=== PATIENT | male | born 1965 | race Caucasian/White ===

== ENCOUNTER 2016-07-30 17:58 | Emergency (ER) | payer BC ==
[~2016-07-30] VITALS: Ht 177.8 cm; Wt 110.0 kg
[~2016-07-30 17:58] MED LIST: ALLOPURINOL100 MG PO; AMLODIPINE5 MG PO; ASPIRIN325 MG PO; CARAFATE OR; CITALOPRAM20 MG PO; CITALOPRAM40 MG PO; EPLERENONE50 MG PO; GLIPIZIDE ER5 MG PO; GLIPIZIDE10 MG PO; LISINOPRIL2.5 MG PO; LORTAB 1010 MG PO; LORTAB 7.57.5 MG PO; METFORMIN500 MG PO; OMEPRAZOLE20 MG PO; PIOGLITAZONE HC15 MG PO; PIOGLITAZONE HC30 MG PO; PREVACID30 M1 PO; SILVADENE1 % EX; SIMVASTATIN40 MG PO; TAM75CAP PO; VIAGRA50 MG PO; ZESTRIL40 MG PO
[2016-07-30 18:43] LABS: HEMOGLOBIN 14.5 g/dl (14.0-18.0); IMMATURE GRANULOCYTES 0.2 % (0.0-1.0); MEAN CELL VOLUME 87.5 fL CALC (80.0-100.0); MEAN CORPUSCULAR HGB 30.2 pG CALC (26.0-32.0); MEAN CORPUSCULAR HGB CONC 34.5 g/L CALC (32.0-36.0); NEUT# 5.15 thou/uL (1.82-7.42); RED BLOOD COUNT 4.8 mill/uL (4.70-6.10); RED CELL DISTRI WIDTH 12.4 % (11.5-15.5)
[2016-07-30] MEDS ORDERED: ASPIRIN81 MG PO (18:54)
[2016-07-30 19:26] LABS: ALKALINE PHOSPHATASE 69 u/l (38-126); ANION GAP 17 (6-22 (CALC)); BILIRUBIN, TOTAL 0.4 mg/dL (0.0-1.4); BUN 21 mg/dL (9-20); BUN/CREATININE RATIO 13 (12-20 (CALC)); CALCIUM 8.8 mg/dL (8.4-10.2); CARBON DIOXIDE 22 mmol/l (22-30); CHLORIDE 110 mmol/l (95-108); CREATININE 1.7 mg/dL (0.7-1.3); GFR 43 ML/MIN (>=60 (CALC)); GFR FOR AFR.AMER. 51 ML/MIN (>=60 (CALC)); GLUCOSE 157 mg/dL (75-110); POTASSIUM 4.2 mmol/l (3.5-5.1); SGOT/AST 22 u/l (17-59); SGPT/ALT 34 u/l (21-72); SODIUM 144 mmol/l (137-146); TOTAL PROTEIN 6.8 g/dL (6.3-8.2)
[2016-07-30 19:37] LABS: MYOGLOBIN 77 ng/mL (0 - 121)
[2016-07-30 20:19] VITALS: BP 112/72
== END 2016-07-30 20:20 | disposition home or self-care (01) | DRG 313 ==
LOC: ED 17:58
DX: R07.89 Other chest pain (principal); I10 Essential (primary) hypertension; F41.9 Anxiety disorder, unspecified; E11.9 Type 2 diabetes mellitus without complications

== ENCOUNTER 2016-11-10 16:29 | Emergency (ER) | payer BC ==
[~2016-11-10] VITALS: Ht 177.8 cm; Wt 120.0 kg
[~2016-11-10 16:29] MED LIST changes: +ASPIRIN81 MG PO
[2016-11-10 17:22] LABS: URINE BILIRUBIN - DIPSTICK NEGATIVE (NEGATIVE); URINE BLOOD DIPSTICK NEGATIVE (NEGATIVE); URINE CLARITY CLEAR; URINE COLOR YELLOW; URINE GLUCOSE - DIPSTICK NEGATIVE (NEGATIVE); URINE KETONE NEGATIVE (NEGATIVE); URINE LEUK ESTERASE NEGATIVE (NEGATIVE); URINE NITRITE - DIPSTICK NEGATIVE (Negative); URINE PH 5.5 (4.5-8.0); URINE PROTEIN - DIPSTICK NEGATIVE (NEG-TRACE); URINE SPECIFIC GRAVITY >=1.030; URINE UROBILINOGEN - DIPSTICK 0.2 E.U./dL (0.2)
[2016-11-10 17:39] LABS: HEMOGLOBIN 14.9 g/dl (14.0-18.0); IMMATURE GRANULOCYTES 0.2 % (0.0-1.0); MEAN CELL VOLUME 87.8 fL CALC (80.0-100.0); MEAN CORPUSCULAR HGB 30.4 pG CALC (26.0-32.0); MEAN CORPUSCULAR HGB CONC 34.7 g/L CALC (32.0-36.0); NEUT# 5.24 thou/uL (1.82-7.42); RED BLOOD COUNT 4.9 mill/uL (4.70-6.10); RED CELL DISTRI WIDTH 12.4 % (11.5-15.5)
[2016-11-10 17:44] LABS: ALBUMIN 4.4 g/dL (3.2-5.0); BILIRUBIN, TOTAL 0.8 mg/dL (0.0-1.4); CALCIUM 9.6 mg/dL (8.4-10.2); CREATININE 1.6 mg/dL (0.7-1.3); POTASSIUM 4.4 mmol/l (3.5-5.1); TOTAL PROTEIN 7.4 g/dL (6.3-8.2)
[2016-11-10 19:25] VITALS: BP 107/71
== END 2016-11-10 19:25 | disposition home or self-care (01) | DRG 392 ==
LOC: ED 16:29
PROVIDERS: Family Medicine
DX: R10.31 Right lower quadrant pain (principal); I10 Essential (primary) hypertension; E11.9 Type 2 diabetes mellitus without complications; Z87.442 Personal history of urinary calculi